=== PATIENT | male | born 1965 | race Two or more races ===

== ENCOUNTER 2023-12-29 07:38 | Day surgery (SDC) | payer OTHER ==
[2023-12-22 08:54] LABS: HEMATOCRIT 36.3 % (39.0-48.0); HEMOGLOBIN 12.6 g/dL (13-16.00); MEAN CELL VOLUME 86.7 fL (80.0-100.00); MEAN CORPUSCULAR HEMOGLOBIN 30.1 pg (27.00-32.0); MEAN CORPUSCULAR HGB CONC 34.7 g/dl (32.0-36.0); PLATELET COUNT 450 K/uL (150-450); RED BLOOD COUNT 4.19 M/uL (4.00-6.00); RED CELL DISTRIBUTION WIDTH 14.3 % (11.5-14.5)
[2023-12-22 09:03] LABS: INR 1.06; PARTIAL THROMBOPLASTIN TIME 28.8 SECONDS (22.0-34.0); PROTHROMBIN TIME 11.1 SECONDS (9.0-11.5)
[2023-12-22 09:22] LABS: ALBUMIN 4.1 gm/dL (3.4-5.0); BILIRUBIN TOTAL 0.55 mg/dL (0.3-1.2); CALCIUM 8.9 mg/dL (8.5-10.1); CREATININE SERUM 1.1 mg/dL (0.70-1.30); GFR 69.24; GLOBULINA 3.9 G/DL (2.4-3.5); POTASSIUM 4.18 mEq/L (3.5-5.1)
[2023-12-22 14:25] LABS: URINE APPEARANCE Clear; URINE BILIRRUBIN Negative (NEGATIVE); URINE BLOOD Negative; URINE COLOR Yellow; URINE GLUCOSE Negative (NEGATIVE); URINE LEUKOCYTE Negative; URINE NITRATE Negative; URINE PROTEIN Negative (NEGATIVE); URINE UROBILINOGEN 0.2 E.U./dl
[2023-12-22 14:29] LABS: URINE WBC 3.8 uL (0.0-23.2)
[2023-12-22 14:53] LABS: URINE BACTERIA 2.5 uL (0.0-1933); URINE EPITHELIAL CELLS 1.3 uL (0.0-38.8); URINE RBC 0.6 uL (0.0-20.8)
[~2023-12-29] VITALS: Ht 162.6 cm; Wt 81.6 kg
[~2023-12-29 07:38] MED LIST: ACID REDUCER20 M1 PO; B12 ACTIVE1000 MCG PO; COZAAR100 MG PO; FENOFIBRIC ACI105 MG PO; MAGNESIUM400 MG PO; NORVASC5 MG PO; PEPCID AC20 MG PO; VASOFLEX D1 CA1 EACH PO; ZOCOR20 MG PO
[2023-12-29] MEDS ORDERED: PERCOCET 5-3251 EACH PO (12:37)
[2023-12-29] MEDS ORDERED: RECTICARE30 GM TOP (12:38)
[2023-12-29] MEDS ORDERED: LIDOCAINE HCL 1%/EPINEPHRINE 20ML VIAL IJ ONE (13:30)
[2023-12-29] MEDS ORDERED: CEFTRIAXONE SODIUM 2,000 MG VIAL IV ONE (13:30)
[2023-12-29] MEDS ORDERED: METRONIDAZOLE/SODIUM CHLORIDE 500 MG/100 ML PIGGYBACK IV ONE (13:30)
[2023-12-29] MEDS ORDERED: DIBUCAINE 30 GM TUBE RECTAL ONE (13:30)
[2023-12-29] MEDS ORDERED: HYDROGEN PEROXIDE 118 ML SOLUTION TOP ONE (13:30)
[2023-12-29] MEDS ORDERED: BUPIVACAINE HCL/PF 0.25% 30ML VIAL InF ONE (13:30)
[2023-12-29] MEDS ORDERED: POVIDONE-IODINE 118 ML BOTT TOP ONE (13:30)
[2023-12-29] MEDS ORDERED: HEMOSTATIC MATRIX 1 KIT KIT TOP ONE (13:45)
[2023-12-29] MEDS ORDERED: TAMSULOSIN HCL 0.4 MG CAP PO ONE (20:15)
== END 2023-12-29 20:45 | disposition home or self-care (01) ==
LOC: CIR.AMB 07:38
PROVIDERS: ATTEND Surgery
DX: K64.2 Third degree hemorrhoids (principal); K64.4 Residual hemorrhoidal skin tags; R19.4 Change in bowel habit; K92.1 Melena; K21.9 Gastro-esophageal reflux disease without esophagitis; E78.00 Pure hypercholesterolemia, unspecified; I10 Essential (primary) hypertension; F41.9 Anxiety disorder, unspecified

== ENCOUNTER 2024-09-16 06:44 | Day surgery (SDC) | payer OTHER ==
[2024-09-10 12:05] VITALS: BP 116/67
[~2024-09-16] VITALS: Ht 162.6 cm; Wt 73.5 kg
[~2024-09-16 06:44] MED LIST changes: +BISOPROLOL-HCT1 EACH PO; +MELATONIN10 M5 PO; +MIRALAX17 GM PO; +PERCOCET 5-3251 EACH PO; +RECTICARE30 GM TOP
[2024-09-16] MEDS ORDERED: BUPIVACAINE LIPOSOME/PF 266 MG/20 ML VIAL IJ ONE (09:30)
[2024-09-16] MEDS ORDERED: CEFTRIAXONE SODIUM 2,000 MG VIAL IV ONE (09:30)
[2024-09-16] MEDS ORDERED: METRONIDAZOLE/SODIUM CHLORIDE 500 MG/100 ML PIGGYBACK IV ONE (09:30)
[2024-09-16] MEDS ORDERED: DIBUCAINE 30 GM TUBE RECTAL NR (09:30)
[2024-09-16] MEDS ORDERED: POVIDONE-IODINE 118 ML BOTT TOP ONE (09:30)
[2024-09-16] MEDS ORDERED: BUPIVACAINE HCL 30 ML VIAL IJ ONE (09:30)
[2024-09-16] MEDS ORDERED: HEMOSTATIC MATRIX 1 KIT KIT TOP ONE (09:45)
[2024-09-16] MEDS ORDERED: PERCOCET 5-3251 EACH PO (10:45)
[2024-09-16] MEDS ORDERED: RECTICARE30 GM TOP (10:46)
[2024-09-16] MEDS ORDERED: TAMSULOSIN HCL 0.4 MG CAP PO ONE (13:00)
== END 2024-09-16 15:40 | disposition home or self-care (01) ==
LOC: CIR.AMB 06:44
PROVIDERS: ATTEND Surgery
DX: K60.30 Anal fistula, unspecified (principal); K64.2 Third degree hemorrhoids; K64.4 Residual hemorrhoidal skin tags; K92.1 Melena; I10 Essential (primary) hypertension; E78.5 Hyperlipidemia, unspecified